=== PATIENT | male | born 1955 | race Caucasian/White ===

== ENCOUNTER 2019-01-17 13:31 | Emergency (ER) | payer OTHER, SELFPAY ==
[2019-01-17 13:33] VITALS: BP 136/88
[2019-01-17] MEDS ORDERED: HYDROcodone/APAP 5/325 TABLET ONE (15:39)
[2019-01-17] MEDS ORDERED: PLEASE ENTER ALLERGIES MC SCH (16:00)
[2019-01-17] MEDS ORDERED: HYDROcodone/APAP 5/325 TABLET PO ONE (16:00)
--- NOTE | 2019-01-17 16:38 | NUR ---
Patient given discharge instructions and they have confirmed that they understand the instructions. Patient ambulatory with steady gait.
[2019-01-17] MEDS ORDERED: OXYcodone/APAP 5/325MG TABLET ONE (18:38)
== END 2019-01-17 17:03 | disposition home or self-care (01) ==
LOC: ED 16:55
DX: S90.02XA Contusion of left ankle, initial encounter (principal); W01.0XXA Fall on same level from slipping, tripping and stumbling without subsequent striking against object, initial encounter; Y93.89 Activity, other specified; Y92.59 Other trade areas as the place of occurrence of the external cause; Y99.8 Other external cause status
CPT/HCPCS: 99283

== ENCOUNTER 2019-01-17 18:25 | Emergency (ER) | payer MEDICAID, OTHER, SELFPAY ==
[~2019-01-17] VITALS: Ht 193 cm; Wt 105.0 kg
[2019-01-17 18:28] VITALS: BP 139/96
--- NOTE | 2019-01-17 18:34 | NUR ---
PT BIB EMS FOR INABILITY TO CRUTCH WALK UP THE FLIGHT OF STAIRS TO GET TO HIS APARTMENT SECONDARY TO LEFT ANKLE PAIN. PT WAS SEEN HERE EARIER THIS AFTERNOON FOR THE ANKLE PAIN AND DISCHARGED HOME WITH AN ANKLE STRAIN, AIR STIRRUP CAST AND CRUTCHES. PT FOUND TO HAVE LIVE BED BUGS ON HIS PERSON WHILE HERE EARLIER TODAY. ISOLATION INTIATED.
[2019-01-17] MEDS ORDERED: OXYcodone/APAP 5/325MG TABLET PO ONE (19:00)
== END 2019-01-17 22:49 | disposition home or self-care (01) ==
LOC: ED 21:59
DX: S93.402A Sprain of unspecified ligament of left ankle, initial encounter (principal); Z72.9 Problem related to lifestyle, unspecified; X58.XXXA Exposure to other specified factors, initial encounter; Y93.89 Activity, other specified; Y92.89 Other specified places as the place of occurrence of the external cause; Y99.8 Other external cause status
CPT/HCPCS: 99283

== ENCOUNTER 2019-01-18 00:30 | Emergency (ER) | payer MEDICARE, MEDICAID | END 2019-01-18 02:20 | disposition left against medical advice (07) | LOC: ED 02:14 | DX: R68.89 Other general symptoms and signs (principal); Z53.21 Procedure and treatment not carried out due to patient leaving prior to being seen by health care provider ==

== ENCOUNTER 2019-01-18 11:04 | Inpatient (IN) | payer MEDICARE, MEDICAID ==
[~2019-01-18] VITALS: Ht 193 cm; Wt 104.0 kg
[2019-01-18] MEDS ORDERED: SODIUM CHLORIDE 0.9% 1,000ML IVBOLUS ONE ×2 (11:30→15:00)
[2019-01-18] MEDS ORDERED: PLEASE ENTER HEIGHT AND WEIGHT MC SCH (12:00)
[2019-01-18 12:05] LABS: FIO2 ROOM AIR %; MEAN CORPUSCULAR HGB CONC 32.1 g/dL (33.2-36.2); MEAN CORPUSCULAR VOLUME 84.1 fL (81-97); MEAN PLATELET VOLUME 9.3 fL (7.4-10.4); PLATELET COUNT 293 x10^3/uL (130-400); RED BLOOD COUNT 5.27 x10^6/uL (4.38-5.82); RED CELL DISTRIBUTION WIDTH 16.4 % (9.4-14.8)
--- NOTE | 2019-01-18 12:13 | NUR ---
PT WITH C/O L FOOT PAIN, 10/13. PT STATES HE WAS HERE THIS MORNING "THEY TOLD ME TO LEAVE". PT WAS NOT GIVEN PAIN MEDICATION AND WOULD LIKE SOME NOW
[2019-01-18 12:15] LABS: ALANINE AMINOTRANSFERASE 26 U/L (12-78); ALBUMIN 4.2 g/dL (3.4-5.0); ANION GAP 22 mmol/L (5-15); CALCIUM 8.6 mg/dL (8.5-10.1); CHLORIDE 100 mmol/L (98-107); CREATININE 2.11 mg/dL (0.7-1.3)
[2019-01-18 12:17] LABS: ALKALINE PHOSPHATASE 167 U/L (45-117); TOTAL PROTEIN 8.7 g/dL (6.4-8.2)
--- NOTE | 2019-01-18 12:42 | NUR ---
GLUCOSE 546. REPORTED TO PROVIDER, LITER BOLUS INFUSING, ADDITIONAL PIV INITIATED. PT PLACED ON CARD MONTIOR, IN ADDITION TO BP, CONT PULSE OX. PT ALERT AND ORIENTED X4, STILL ASKING FOR PAIN MEDICATION, WILL UPDATE
[2019-01-18 12:47] LABS: MD YES
[2019-01-18 12:49] LABS: BAND#(MANUAL) 0.63 x10^3/uL; BANDS%(MANUAL) 3 % (0-7); LYMPH#(MANUAL) 0.21 x10^3/uL (1-3.4); LYMPHS% (MANUAL) 1 % (22-44); MONOS#(MANUAL) 0.63 x10^3/uL (0.3-2.7); MONOS% (MANUAL) 3 % (2-9); SEG#(MANUAL) 19.44 x10^3/uL (1.8-6.8); SEGS% (MANUAL) 93 % (42-75)
[2019-01-18 12:50] LABS: <PLATELET ESTIMATE> ADEQUATE; <PLT MORPHOLOGY> NORMAL PLT MORPH; ANISOCYTOSIS 1+; HYPOCHROMIA 1+
[2019-01-18 13:05] LABS: ACETONE, SERUM Large (80mg/dL) mg/dL (Negative)
[2019-01-18] MEDS ORDERED: REGULAR INSULIN 62.5 UNITS in SODIUM CHLORIDE 0.9% 249.375 ML IV PRN (13:07)
[2019-01-18] MEDS ORDERED: INSULIN SINGLE DOSE, ER ONE (13:20)
[2019-01-18] MEDS ORDERED: CEFTRIAXONE PMX 1GM/50ML 50 ML ONE (13:21)
[2019-01-18] MEDS ORDERED: INSULIN REGULAR 100 UNITS/ML, 3ML VIAL IVPush ONE (13:30)
[2019-01-18] MEDS ORDERED: CEFTRIAXONE PMX 1GM/50ML 50 ML IV ONE (13:30)
--- NOTE | 2019-01-18 13:51 | NUR ---
REPORT CALLED TO RECIEVING RN
[2019-01-18 14:08] LABS: MICROSCOPIC NOT IND
[2019-01-18 14:10] LABS: CULTURE INDICATED? NO
[2019-01-18] MEDS ORDERED: ACETAMINOPHEN 325 MG TABLET PO PRN (14:30)
[2019-01-18] MEDS ORDERED: LABETALOL 5MG/ML, 20ML IVPush PRN (14:30)
[2019-01-18] MEDS ORDERED: BISACODYL 10 MG SUPP PR PRN (14:30)
[2019-01-18] MEDS ORDERED: ONDANSETRON ODT 4 MG PO PRN (14:30)
[2019-01-18] MEDS ORDERED: INSULIN GLARGINE 100 UNITS/ML, PEN ONE (14:39)
[2019-01-18] MEDS: INSULIN GLARGINE 100 UNITS/ML, PEN SQ-INSULIN SCH (14:48)
[2019-01-18] MEDS: INSULIN LISPRO 100 UNITS/ML, PEN SQ-INSULIN SCH ×2 (14:48→19:16)
[2019-01-18] MEDS: SODIUM CHLORIDE 0.9% 1,000 ML IV SCH ×2 (15:28→23:31)
[2019-01-18] MEDS: ENOXAPARIN 40 MG/0.4 ML SQ SCH (15:30)
[2019-01-18 16:18] LABS: ANION GAP 14 mmol/L (5-15); CALCIUM 8.2 mg/dL (8.5-10.1); CHLORIDE 111 mmol/L (98-107)
[2019-01-18 16:19] LABS: CREATININE 1.73 mg/dL (0.7-1.3)
[2019-01-18 16:21] LABS: HEMOGLOBIN A1C 12.2 % (4.2-6.3)
[2019-01-18] MEDS ORDERED: ONDANSETRON 2MG/ML, 2ML IVPush PRN (17:00)
[2019-01-18] MEDS: ONDANSETRON 2MG/ML, 2ML IVPush PRN (17:14)
[2019-01-18] MEDS ORDERED: INSULIN GLARGINE 100 UNITS/ML, PEN SQ-INSULIN ONE (21:00)
[2019-01-18] MEDS ORDERED: INSULIN GLARGINE 100 UNITS/ML, PEN SQ-INSULIN SCH (21:00)
[2019-01-19 04:36] LABS: BASOPHILS # (AUTO) 0.03 x10^3/uL (0-0.1); BASOPHILS % (AUTO) 0 % (0-1); EOSINOPHILS # (AUTO) 0.01 x10^3/uL (0-0.4); EOSINOPHILS % (AUTO) 0 % (1-7); LYMPHOCYTES # (AUTO) 0.96 x10^3/uL (1-3.4); LYMPHOCYTES % (AUTO) 7 % (22-44); MD NO; MEAN CORPUSCULAR HEMOGLOBIN 26.5 pg (27.5-34.5); MEAN CORPUSCULAR VOLUME 82.9 fL (81-97); MEAN PLATELET VOLUME 8.5 fL (7.4-10.4); MONOCYTES # (AUTO) 0.79 x10^3/uL (0.2-0.8); MONOCYTES % (AUTO) 6 % (2-9); NEUTROPHILS # (AUTO) 11.24 x10^3/uL (1.8-6.8); NEUTROPHILS % (AUTO) 86 % (42-75); PLATELET COUNT 210 x10^3/uL (130-400); RED BLOOD COUNT 4.25 x10^6/uL (4.38-5.82); RED CELL DISTRIBUTION WIDTH 16.2 % (9.4-14.8)
[2019-01-19 04:38] LABS: ANION GAP 7 mmol/L (5-15); CALCIUM 7.8 mg/dL (8.5-10.1); CHLORIDE 112 mmol/L (98-107)
[2019-01-19 04:41] LABS: ALANINE AMINOTRANSFERASE 19 U/L (12-78); ALKALINE PHOSPHATASE 110 U/L (45-117); BILIRUBIN,TOTAL 0.7 mg/dL (0.2-1.0); CREATININE 1.38 mg/dL (0.7-1.3); TOTAL PROTEIN 6.6 g/dL (6.4-8.2)
[2019-01-19] MEDS: SODIUM CHLORIDE 0.9% 1,000 ML IV SCH ×2 (05:11→14:02)
[2019-01-19] MEDS: INSULIN LISPRO 100 UNITS/ML, PEN SQ-INSULIN SCH ×4 (07:31→21:00)
[2019-01-19] MEDS: INSULIN GLARGINE 100 UNITS/ML, PEN SQ-INSULIN SCH ×3 (07:32→21:10)
[2019-01-19] MEDS: LIDODERM 5% PATCH TD SCH (08:54)
[2019-01-19] MEDS: LISINOPRIL 10 MG TABLET PO SCH ×2 (08:55→21:05)
[2019-01-19] MEDS: SENNA/DOCUSATE TABLET PO SCH (08:55)
[2019-01-19] MEDS ORDERED: INSULIN GLARGINE 100 UNITS/ML, PEN SQ-INSULIN ONE (09:00)
[2019-01-19] MEDS ORDERED: GLUCAGON 1 MG IM PRN (10:00)
[2019-01-19] MEDS ORDERED: DEXTROSE 4 GM TAB.CHEW PO PRN (10:00)
[2019-01-19] MEDS ORDERED: DEXTROSE 50%, 50ML SYRINGE IVPush PRN (10:00)
[2019-01-19] MEDS: SODIUM CHLORIDE FLUSH 10ML SYR IVF SCH ×2 (10:52→19:59)
[2019-01-19] MEDS: DOXYCYCLINE 100MG TABLET PO SCH ×2 (10:52→21:05)
[2019-01-19] MEDS: ONDANSETRON 2MG/ML, 2ML IVPush PRN ×2 (11:51→17:36)
[2019-01-19] MEDS: ENOXAPARIN 40 MG/0.4 ML SQ SCH ×2 (14:01→14:31)
[2019-01-19 19:45] VITALS: BP 146/80
[2019-01-20 02:12] VITALS: BP 137/81
[2019-01-20 05:05] LABS: BASOPHILS # (AUTO) 0.02 x10^3/uL (0-0.1); BASOPHILS % (AUTO) 0 % (0-1); EOSINOPHILS % (AUTO) 1 % (1-7); LYMPHOCYTES # (AUTO) 0.96 x10^3/uL (1-3.4); LYMPHOCYTES % (AUTO) 9 % (22-44); MD NO; MEAN CORPUSCULAR HEMOGLOBIN 26.8 pg (27.5-34.5); MEAN CORPUSCULAR HGB CONC 32.4 g/dL (33.2-36.2); MEAN CORPUSCULAR VOLUME 82.6 fL (81-97); MONOCYTES # (AUTO) 0.84 x10^3/uL (0.2-0.8); MONOCYTES % (AUTO) 8 % (2-9); NEUTROPHILS # (AUTO) 8.26 x10^3/uL (1.8-6.8); NEUTROPHILS % (AUTO) 81 % (42-75); PLATELET COUNT 204 x10^3/uL (130-400); RED BLOOD COUNT 4.19 x10^6/uL (4.38-5.82); RED CELL DISTRIBUTION WIDTH 15.9 % (9.4-14.8)
[2019-01-20 05:17] LABS: ANION GAP 6 mmol/L (5-15); CHLORIDE 114 mmol/L (98-107); CREATININE 0.96 mg/dL (0.7-1.3)
[2019-01-20 07:10] VITALS: BP 125/75
[2019-01-20] MEDS: SENNA/DOCUSATE TABLET PO SCH (07:46)
[2019-01-20] MEDS: LISINOPRIL 10 MG TABLET PO SCH ×2 (07:46→20:18)
[2019-01-20] MEDS: DOXYCYCLINE 100MG TABLET PO SCH ×2 (07:46→20:18)
[2019-01-20] MEDS: SODIUM CHLORIDE 0.9% 1,000 ML IV SCH ×2 (07:47→20:19)
[2019-01-20] MEDS: INSULIN LISPRO 100 UNITS/ML, PEN SQ-INSULIN SCH ×4 (07:48→20:19)
[2019-01-20] MEDS: SODIUM CHLORIDE FLUSH 10ML SYR IVF SCH ×2 (07:49→20:19)
[2019-01-20] MEDS: HYDROcodone/APAP 5/325 TABLET PO PRN ×3 (11:14→23:04)
[2019-01-20] MEDS ORDERED: CEFTRIAXONE PMX 1GM/50ML 50 ML IV SCH (13:00)
[2019-01-20 13:21] VITALS: BP 145/78
[2019-01-20] MEDS: ENOXAPARIN 40 MG/0.4 ML SQ SCH (14:33)
[2019-01-20 19:31] VITALS: BP 137/92
[2019-01-20] MEDS: LIDODERM 5% PATCH TD SCH (20:18)
[2019-01-21 02:07] VITALS: BP 136/86
[2019-01-21] MEDS: HYDROcodone/APAP 5/325 TABLET PO PRN ×3 (04:50→19:36)
[2019-01-21] MEDS ORDERED: THROMBIN 5,000 UNIT VIAL TP ONE (06:37)
[2019-01-21] MEDS ORDERED: FENTANYL PF 250 MCG/5ML ONE (06:47)
[2019-01-21] MEDS ORDERED: MIDAZOLAM 1 MG/ML, 2ML ONE (06:47)
[2019-01-21] MEDS: INSULIN LISPRO 100 UNITS/ML, PEN SQ-INSULIN SCH ×4 (07:00→21:55)
[2019-01-21] MEDS ORDERED: TRANEXAMIC ACID 100 MG/ML, 10ML ONE (07:07)
[2019-01-21] MEDS ORDERED: DIAZEPAM 5 MG/ML, 2ML IVPush PRN (08:00)
[2019-01-21] MEDS ORDERED: OXYcodone 5 MG/5 ML ORAL.SOL UDC PO PRN ×2 (08:00→08:30)
[2019-01-21] MEDS ORDERED: LABETALOL 5MG/ML, 20ML IV PRN (08:00)
[2019-01-21] MEDS ORDERED: HYDROmorphone 2 MG/ML, 1ML IVPush PRN ×2 (08:00→08:30)
[2019-01-21] MEDS ORDERED: ACETAMINOPHEN 325 MG TABLET PO PRN (08:00)
[2019-01-21] MEDS ORDERED: KETOROLAC 30 MG/1 ML IV PRN (08:00)
[2019-01-21] MEDS ORDERED: PROMETHAZINE 25 MG/ML, 1ML IV PRN (08:00)
[2019-01-21] MEDS ORDERED: MEPERIDINE/PF 25MG/0.5ML IVPush PRN (08:00)
[2019-01-21] MEDS ORDERED: hydrALAzine 20 MG/ML, 1ML IV PRN (08:00)
[2019-01-21] MEDS ORDERED: ALBUTEROL SULFATE 2.5 MG/3 ML NPPB PRN (08:00)
[2019-01-21] MEDS ORDERED: ROCURONIUM 10MG/ML,5ML ONE (08:16)
[2019-01-21] MEDS ORDERED: NEOSTIGMINE 1 MG/ML, 10ML ONE (08:16)
[2019-01-21] MEDS ORDERED: DEXAMETHASONE 4 MG/ML, 1ML ONE (08:16)
[2019-01-21] MEDS ORDERED: GLYCOPYRROLATE 0.2MG/1ML, 5ML ONE (08:16)
[2019-01-21] MEDS ORDERED: ONDANSETRON 2MG/ML, 2ML ONE (08:16)
[2019-01-21] MEDS ORDERED: SUCCINYLCHOLINE 20 MG/ML, 10ML ONE (08:16)
[2019-01-21] MEDS ORDERED: PROPOFOL 10 MG/ML, 20ML ONE (08:16)
[2019-01-21] MEDS ORDERED: CEFAZOLIN 1,000 MG ONE (08:16)
[2019-01-21] MEDS: FENTANYL PF 100 MCG/2ML IV PRN ×4 (08:29→08:50)
[2019-01-21] MEDS ORDERED: OXYcodone 5 MG/5 ML ORAL.SOL UDC ONE (08:31)
[2019-01-21] MEDS ORDERED: FENTANYL PF 100 MCG/2ML ONE (08:31)
[2019-01-21 09:17] VITALS: BP 122/71
[2019-01-21 09:35] LABS: BASOPHILS # (AUTO) 0.03 x10^3/uL (0-0.1); BASOPHILS % (AUTO) 0 % (0-1); EOSINOPHILS # (AUTO) 0.03 x10^3/uL (0-0.4); EOSINOPHILS % (AUTO) 0 % (1-7); LYMPHOCYTES # (AUTO) 0.56 x10^3/uL (1-3.4); LYMPHOCYTES % (AUTO) 6 % (22-44); MD NO; MEAN CORPUSCULAR HEMOGLOBIN 26.5 pg (27.5-34.5); MEAN CORPUSCULAR HGB CONC 32.3 g/dL (33.2-36.2); MEAN CORPUSCULAR VOLUME 82.2 fL (81-97); MEAN PLATELET VOLUME 7.5 fL (7.4-10.4); MONOCYTES # (AUTO) 0.36 x10^3/uL (0.2-0.8); MONOCYTES % (AUTO) 4 % (2-9); NEUTROPHILS # (AUTO) 9.09 x10^3/uL (1.8-6.8); NEUTROPHILS % (AUTO) 90 % (42-75); PLATELET COUNT 214 x10^3/uL (130-400); RED CELL DISTRIBUTION WIDTH 15.8 % (9.4-14.8)
[2019-01-21 09:46] LABS: ANION GAP 10 mmol/L (5-15); CALCIUM 8.3 mg/dL (8.5-10.1); CHLORIDE 108 mmol/L (98-107); CREATININE 1.05 mg/dL (0.7-1.3)
[2019-01-21] MEDS: LISINOPRIL 10 MG TABLET PO SCH ×2 (09:48→21:54)
[2019-01-21] MEDS: SENNA/DOCUSATE TABLET PO SCH (09:49)
[2019-01-21] MEDS: DOXYCYCLINE 100MG TABLET PO SCH ×2 (09:49→21:53)
[2019-01-21] MEDS: SODIUM CHLORIDE FLUSH 10ML SYR IVF SCH ×2 (09:49→23:14)
[2019-01-21] MEDS: NS + 20MEQ KCL 1,000 ML IV SCH ×2 (10:38→21:54)
[2019-01-21 14:27] VITALS: BP_SYST 104; BP_SYST 113; BP_DIAS 65; BP_DIAS 70
[2019-01-21] MEDS: CEFAZOLIN PMX 2GM/50ML 50 ML IVPB SCH ×2 (14:45→23:12)
[2019-01-21 19:05] VITALS: BP 135/84
[2019-01-21] MEDS ORDERED: INSULIN GLARGINE 100 UNITS/ML, PEN SQ-INSULIN SCH (21:00)
[2019-01-21] MEDS: INSULIN GLARGINE 100 UNITS/ML, PEN SQ-INSULIN SCH (21:55)
[2019-01-21] MEDS: LIDODERM 5% PATCH TD SCH (23:13)
[2019-01-22 01:30] VITALS: BP 146/82
[2019-01-22] MEDS: HYDROcodone/APAP 5/325 TABLET PO PRN ×4 (01:47→20:32)
[2019-01-22 05:20] LABS: BASOPHILS # (AUTO) 0.03 x10^3/uL (0-0.1); BASOPHILS % (AUTO) 0 % (0-1); EOSINOPHILS # (AUTO) 0.12 x10^3/uL (0-0.4); EOSINOPHILS % (AUTO) 1 % (1-7); LYMPHOCYTES # (AUTO) 0.89 x10^3/uL (1-3.4); LYMPHOCYTES % (AUTO) 10 % (22-44); MD NO; MEAN CORPUSCULAR HEMOGLOBIN 26.3 pg (27.5-34.5); MEAN CORPUSCULAR HGB CONC 32.2 g/dL (33.2-36.2); MEAN CORPUSCULAR VOLUME 81.6 fL (81-97); MEAN PLATELET VOLUME 7.7 fL (7.4-10.4); MONOCYTES # (AUTO) 1.08 x10^3/uL (0.2-0.8); MONOCYTES % (AUTO) 12 % (2-9); NEUTROPHILS # (AUTO) 7.14 x10^3/uL (1.8-6.8); NEUTROPHILS % (AUTO) 77 % (42-75); PLATELET COUNT 209 x10^3/uL (130-400); RED BLOOD COUNT 4.05 x10^6/uL (4.38-5.82); RED CELL DISTRIBUTION WIDTH 15.9 % (9.4-14.8)
[2019-01-22 05:28] LABS: ANION GAP 6 mmol/L (5-15); CALCIUM 8.2 mg/dL (8.5-10.1); CHLORIDE 108 mmol/L (98-107)
[2019-01-22 05:31] LABS: CREATININE 0.97 mg/dL (0.7-1.3)
[2019-01-22] MEDS: RIVAROXABAN 10 MG TABLET PO SCH (06:15)
[2019-01-22] MEDS: NS + 20MEQ KCL 1,000 ML IV SCH ×2 (07:29→16:38)
[2019-01-22] MEDS: SODIUM CHLORIDE FLUSH 10ML SYR IVF SCH ×2 (07:29→21:00)
[2019-01-22] MEDS: INSULIN LISPRO 100 UNITS/ML, PEN SQ-INSULIN SCH ×5 (07:29→20:40)
[2019-01-22] MEDS: INSULIN GLARGINE 100 UNITS/ML, PEN SQ-INSULIN SCH ×2 (07:32→20:41)
[2019-01-22 07:55] VITALS: BP 148/75
[2019-01-22] MEDS: SENNA/DOCUSATE TABLET PO SCH (08:02)
[2019-01-22] MEDS: POLYETHYLENE GLYCOL 17 GM PACKET PO PRN (08:02)
[2019-01-22] MEDS: DOXYCYCLINE 100MG TABLET PO SCH ×2 (08:03→20:39)
[2019-01-22] MEDS: LISINOPRIL 10 MG TABLET PO SCH ×2 (08:03→20:40)
[2019-01-22 13:33] VITALS: BP 138/80
[2019-01-22 19:28] VITALS: BP 156/89
[2019-01-23] MEDS: LIDODERM 5% PATCH TD SCH (00:20)
[2019-01-23 01:53] VITALS: BP 142/80
[2019-01-23] MEDS: HYDROcodone/APAP 5/325 TABLET PO PRN ×4 (02:54→14:55)
[2019-01-23] MEDS: NS + 20MEQ KCL 1,000 ML IV SCH (03:30)
[2019-01-23 05:21] LABS: BASOPHILS # (AUTO) 0.04 x10^3/uL (0-0.1); BASOPHILS % (AUTO) 0 % (0-1); EOSINOPHILS # (AUTO) 0.12 x10^3/uL (0-0.4); EOSINOPHILS % (AUTO) 1 % (1-7); LYMPHOCYTES # (AUTO) 1.15 x10^3/uL (1-3.4); LYMPHOCYTES % (AUTO) 12 % (22-44); MD NO; MEAN CORPUSCULAR HEMOGLOBIN 26.2 pg (27.5-34.5); MEAN CORPUSCULAR HGB CONC 32.4 g/dL (33.2-36.2); MEAN CORPUSCULAR VOLUME 80.9 fL (81-97); MONOCYTES # (AUTO) 1.17 x10^3/uL (0.2-0.8); MONOCYTES % (AUTO) 12 % (2-9); NEUTROPHILS # (AUTO) 7.14 x10^3/uL (1.8-6.8); NEUTROPHILS % (AUTO) 74 % (42-75); PLATELET COUNT 223 x10^3/uL (130-400); RED CELL DISTRIBUTION WIDTH 15.9 % (9.4-14.8)
[2019-01-23 05:28] LABS: ANION GAP 5 mmol/L (5-15); CALCIUM 8.5 mg/dL (8.5-10.1); CHLORIDE 108 mmol/L (98-107)
[2019-01-23 05:29] LABS: CREATININE 0.86 mg/dL (0.7-1.3)
[2019-01-23 06:29] VITALS: BP 147/72
[2019-01-23] MEDS: POLYETHYLENE GLYCOL 17 GM PACKET PO PRN (06:34)
[2019-01-23] MEDS: RIVAROXABAN 10 MG TABLET PO SCH (06:34)
[2019-01-23] MEDS: DOXYCYCLINE 100MG TABLET PO SCH (09:03)
[2019-01-23] MEDS: SENNA/DOCUSATE TABLET PO SCH (09:04)
[2019-01-23] MEDS: LISINOPRIL 10 MG TABLET PO SCH (09:06)
[2019-01-23] MEDS: INSULIN GLARGINE 100 UNITS/ML, PEN SQ-INSULIN SCH (09:08)
[2019-01-23] MEDS: SODIUM CHLORIDE FLUSH 10ML SYR IVF SCH (09:08)
[2019-01-23] MEDS: INSULIN LISPRO 100 UNITS/ML, PEN SQ-INSULIN SCH ×2 (09:08→11:00)
[2019-01-23] MEDS ORDERED: SENN-193 PO (12:02)
[2019-01-23] MEDS ORDERED: INSU100I11 SQ-INSULIN (12:02)
[2019-01-23] MEDS ORDERED: ACET325T26 PO (12:02)
[2019-01-23] MEDS ORDERED: TRAM50TA2 PO (12:02)
[2019-01-23] MEDS ORDERED: DOXY100T PO (12:02)
[2019-01-23] MEDS ORDERED: RIVA10TA2 PO (12:02)
[2019-01-23] MEDS ORDERED: LIDO700A20 TD (12:02)
[2019-01-23] MEDS ORDERED: ONDA4TAB13 PO (12:02)
[2019-01-23] MEDS ORDERED: HYDR-3237 PO (12:02)
[2019-01-23] MEDS ORDERED: POLY17PO5 PO (12:02)
[2019-01-23] MEDS ORDERED: LISI-167 PO (12:02)
[2019-01-23] MEDS ORDERED: BISA10SU4 PR (12:02)
[2019-01-23] MEDS ORDERED: INSU100I13 SQ-INSULIN (12:02)
[2019-01-23 13:55] VITALS: BP 143/82
== END 2019-01-23 16:30 | DRG 853 ==
LOC: ED 13:08 → EDIP 13:09 → ED 13:39 → CCU 14:16 → 4NE 01-19 16:09
PROVIDERS: ADMIT Internal Medicine; ATTEND Internal Medicine
PROC: 0SRS0J9 Replacement of Left Hip Joint, Femoral Surface with Synthetic Substitute, Cemented, Open Approach (ICD-10-PCS; principal; 2019-01-21 07:00)
DX: A41.9 Sepsis, unspecified organism (principal); S72.002A Fracture of unspecified part of neck of left femur, initial encounter for closed fracture; E11.10 Type 2 diabetes mellitus with ketoacidosis without coma; N17.0 Acute kidney failure with tubular necrosis; J18.9 Pneumonia, unspecified organism; Z86.718 Personal history of other venous thrombosis and embolism; R74.8 Abnormal levels of other serum enzymes; R00.0 Tachycardia, unspecified; D64.9 Anemia, unspecified; J98.4 Other disorders of lung; W18.39XA Other fall on same level, initial encounter; Y93.89 Activity, other specified; Y92.89 Other specified places as the place of occurrence of the external cause; Y99.8 Other external cause status; Z79.4 Long term (current) use of insulin; Z82.49 Family history of ischemic heart disease and other diseases of the circulatory system; Z83.3 Family history of diabetes mellitus; Z89.422 Acquired absence of other left toe(s); Z89.439 Acquired absence of unspecified foot
CPT/HCPCS: 36415; 36600; 71045; 72170; 80048; 80053; 81003; 82010; 82803; 82962; 83036; 83605; 83735; 84100; 85025; 87040; 87081; 96374; 96375; 99283; 99285; C1713; G0378; J0690; J0696; J1100; J1650; J1815; J2250; J2405; J2704; J2710; J3010; J3480; C1762; C1776; J0330; J7030